=== PATIENT | female | born 1950 | race Caucasian/White ===

== ENCOUNTER → 2018-03-20 | Outpatient (CLI) | payer BC ==
[~2018-03-20] MED LIST: ACE500 PO; ASC500 PO; ASPI81TA94 PO; ATOR40TA24 PO; DIPH-740 PO; DOC240 PO; ENO30I SC; EZET1TAB55 PO; FISH OIL1 CAP PO; GUAR1TAB15 PO; IBU800 PO; MECL25TA9 PO; MULT-1335 PO; OMEP-153 PO; PER PO; SCOT TD; SIMV-44 PO; TOLT4CAP13 PO; VITA1CAP8 PO
--- NOTE | 2018-03-20 15:04 | RADIOLOGY IMAGING REPORT ---
FACILITY: [facility] [place] PATIENT NAME: Mellissa Combs : 1950 MR: [id number] V: [id number] EXAM DATE: ORDERING PHYSICIAN: CHANTAL SINGLETON TECHNOLOGIST: Location: [facility] Patient: Mellissa Combs : 1950 Visit/Account:[id number] Date of Sevice: 03/20/2018 TIBIA FIBULA LEFT HISTORY: Hit leg on tractor blade to half months ago. Two-view examination of the left lower extreme FINDINGS: No acute bony pathology. The tibia and fibula are well-maintained. No fractures. Joint spaces well -maintained. Impression 1. Negative left lower extremity. Report Dictated By: Vicente Loredo MD at 03/20/2018 2:51 PM Report E-Signed By: Vicente Loredo MD at 03/20/2018 3:00 PM WSN:[id number]
--- NOTE | 2018-03-20 15:18 | RADIOLOGY IMAGING REPORT ---
FACILITY: [facility] PATIENT NAME: CINTHIA HARRY : [id number] MR: [id number] V: [id number] EXAM DATE: [id number] ORDERING PHYSICIAN: CHANTAL SINGLETON TECHNOLOGIST: Danitza Smith PROCEDURE:BILATERAL DIGITAL SCREENING MAMMOGRAM WITH CAD ASSISTED INTERPRETATION & 3D TOMOSYNTHESIS COMPARISON:Prior mammograms 02/08/2017, 07/03/2015, 08/05/2014. INDICATIONS:Screening FINDINGS: The breast tissue demonstrates scattered fibroglandular density. 6mm subcutaneous nodule in the Right breast 10 o'clock position, 6cm from the nipple is more prompt than prior examination and warrants further evaluation. There may be some fat and this may represent a lymph node. I would suggest a targeted Ultrasound for further evaluation. Else were no persistent areas of architectural distortion or suspicious microcalcifications in either breast. DIAGNOSTIC CATEGORY 0--INCOMPLETE: NEED ADDITIONAL IMAGING EVALUATION. RECOMMENDATIONS: ULTRASOUND: OF THE 6MM SUBCUTANEOUS NODULE IN THE RIGHT BREAST 10 O'CLOCK POSITION, 6CM FROM THE NIPPLE. IMPRESSION: BIRADS 0: Incomplete. Dictated by: Cesar Black M.D. on 03/20/2018 at 14:55 Transcribed by: AMBER on 03/20/2018 at 15:07 Approved by: Cesar Black M.D. on 03/20/2018 at 15:17 [facility]
== END ==
LOC: MAMO 02-09 01:50
PROVIDERS: ATTEND Nurse Practitioner Family
DX: Z12.31 Encounter for screening mammogram for malignant neoplasm of breast (principal); S87.82XA Crushing injury of left lower leg, initial encounter; Z80.3 Family history of malignant neoplasm of breast; W30.81XA Contact with agricultural transport vehicle in stationary use, initial encounter
CPT/HCPCS: 77063; 77067

== ENCOUNTER → 2018-03-28 | Outpatient (CLI) | payer BC ==
--- NOTE | 2018-03-29 08:49 | RADIOLOGY IMAGING REPORT ---
FACILITY: [facility] - [place] PATIENT NAME: CINTHIA HARRY : [id number] MR: [id number] V: [id number] EXAM DATE: [id number] ORDERING PHYSICIAN: CHANTAL SINGLETON TECHNOLOGIST: Cynthia Estrada RDMS(ABD,OBGYN,BR),RVT PROCEDURE:US RIGHT BREAST COMPARISON:Prior mammogram 03/20/18 INDICATIONS:FURTHER EVAL FINDINGS: In the 10 o'clock position of the Right breast approximately 6cm from the nipple is a small 6mm hypoechoic structure with acoustic enhancement. This likely represents a small debris filled cyst. This likely accounts for the recent mammographic findings. DIAGNOSTIC CATEGORY 2--BENIGN FINDING. RECOMMENDATIONS: ROUTINE MAMMOGRAM AND CLINICAL EVALUATION. IMPRESSION: BIRADS 2: Benign finding. There is a 6mm cyst in the 10 o'clock position of the Right breast 6cm from the nipple likely accounting for the recent mammographic findings. Dictated by: Connie Benavides M.D. on 03/28/2018 at 17:18 Transcribed by: AMBER on 03/29/2018 at 8:12 Approved by: Connie Benavides M.D. on 03/29/2018 at 8:48 [facility]
== END ==
LOC: US 01:48
PROVIDERS: ATTEND Nurse Practitioner Family
DX: N60.01 Solitary cyst of right breast (principal)